=== PATIENT | female | born 1940 | race Caucasian/White ===

== ENCOUNTER 2016-12-16 10:10 | Emergency (ER) | payer MEDICARE, BC ==
[2016-12-16] MEDS ORDERED: Sodium Chloride 0.9% 10 ML Syringe FLUSH PRN (11:24)
--- NOTE | 2016-12-16 11:32 | EDM.PDOC ---
ED HPI GENERAL MEDICAL PROBLEM - General Chief Complaint: General Stated Complaint: UNABLE TO WALK/EAT Time Seen by Provider: 12/16/16 11:06 Source of Information: Reports: Family (daughter), [facility], RN ( [facility] JAKE) History Limitations: Reports: No Limitations - History of Present Illness INITIAL COMMENTS - FREE TEXT/NARRATIVE: 76-year-old female presents for evaluation and treatment of injuries from a fall. Reportedly the patient has fallen 3 times in the last 3 weeks. She just recently moved to [facility], a memory care facility. The patient has believed body dementia and is unable to provide any history. History is mostly obtained from the patient's daughter, Ruth and a nurse from [facility]. Reportedly she's had 3 falls in the last 3 weeks. The first fall was unwitnessed. She was found on the floor was unable to get up at that time. The second fall was witnessed. She reportedly slid out of a chair. The third fall occurred 3 days ago. She was walking with a staff member when she became weak and slid down against a door frame. She was able to walk a little bit that day but over the last 3 days she has no longer been able to ambulate which she has been able to do so prior to this. Nursing staff also reports associated symptoms of a decreased appetite. She is not in any obvious pain but says "how "with certain range of motion and attempting to ambulate. No fevers, vomiting or diarrhea. She is on 81 mg aspirin daily. - Related Data Allergies Allergy/AdvReac Type Severity Reaction Status Date / Time acetaminophen Allergy Hallucinati Verified 12/16/16 10:27 [From Darvocet-N] ons etodolac [From Lodine] Allergy Other Verified 12/16/16 10:27 promethazine HCl Allergy Hallucinati Verified 12/16/16 10:27 [From Phenergan] ons propoxyphene napsylate Allergy Hallucinati Verified 12/16/16 10:27 [From Darvocet-N] ons sulfamethoxazole Allergy Other Verified 12/16/16 10:27 [From Bactrim] trimethoprim [From Bactrim] Allergy Other Verified 12/16/16 10:27 zolpidem [From Ambien] Allergy Other Verified 12/16/16 10:27 SMZ-TMP DS Tabs Allergy Rash Uncoded 04/05/16 08:20 [employer] Home Meds: Home Meds Aspirin [Ecotrin] 81 mg PO BEDTIME 01/28/15 [History] Captopril 50 mg PO BID 01/28/15 [History] Latanoprost [Xalatan 0.005% Ophth Soln] 1 drop EYEBOTH BEDTIME 01/28/15 [History ] Metoprolol Tartrate [Lopressor] 50 mg PO BID 01/28/15 [History] Simvastatin [Zocor] 40 mg PO BEDTIME 01/28/15 [History] Cholecalciferol (Vitamin D3) [Vitamin D] 2,000 unit PO DAILY 10/11/16 [History] Carbidopa/Levodopa [Sinemet 10-100 mg] 1 tab PO TID 12/16/16 [History] Multivit-Min/FA/Lycopene/Lut [Centrum Silver Tablet] 1 tab PO DAILY 12/16/16 [ History] traMADol HCl [Tramadol HCl] 1 tab PO QID PRN 12/16/16 [History] Past Medical History HEENT History: Reports: Cataract, Glaucoma Cardiovascular History: Reports: Cardiomyopathy, High Cholesterol, Hypertension Other Cardiovascular History: REcent stress test, echocardiogram and good results from [facility]/Dr. Mike Em stated Spouse Respiratory History: Reports: Other (See Below) Gastrointestinal History: Reports: Diverticulosis Other Gastrointestinal History: constipation occasionally Genitourinary History: Reports: Urinary Incontinence, UTI, Recurrent EARLY CHILDHOOD SERVICES COORDINATOR History: Reports: Musculoskeletal History: Reports: None Neurological History: Reports: Other (See Below) Other Neuro History: No migraines for years Psychiatric History: Reports: Dementia, Depression Endocrine/Metabolic History: Reports: Osteopenia Hematologic History: Reports: None Immunologic History: Reports: None Oncologic (Cancer) History: Reports: None Dermatologic History: Reports: None - Infectious Disease History Infectious Disease History: Reports: Chicken Pox, Mumps - Past Surgical History Head Surgeries/Procedures: Reports: None Cardiovascular Surgical History: Reports: Other (See Below) Social & Family History - Family History Family Medical History: Noncontributory HEENT: Reports: None Cardiac: Reports: Heart Failure, Hypertension Respiratory: Reports: COPD Musculoskeletal: Reports: Arthritis - Tobacco Use Smoking Status *Q: Unknown Ever Smoked Used Tobacco, but Quit: Yes Month Tobacco Last Used: Cannot recall Second Hand Smoke Exposure: No - Caffeine Use Caffeine Use: Reports: None - Recreational Drug Use Recreational Drug Use: No Drug Use in Last 12 Months: No ED ROS GENERAL - Review of Systems Review Of Systems: See Below Constitutional: Denies: Fever GI/Abdominal: Denies: Diarrhea, Vomiting Neurological: Reports: Difficulty Walking ED EXAM, GENERAL - Physical Exam Exam: See Below Exam Limited By: No Limitations General Appearance: Alert, No Apparent Distress, Thin Eye Exam: Bilateral Eye: Normal Inspection, PERRL Ears: Normal External Exam, Normal Canal, Hearing Grossly Normal, Normal TMs Nose: Normal Inspection Throat/Mouth: Normal Inspection, Normal Lips, Normal Oropharynx, Normal Voice, No Airway Compromise, Other (dry mucus membranes) Head: Other (approximately golf ball sized lump to the left superior parietal region) Neck: Normal Inspection, Supple, Non-Tender, Full Range of Motion Respiratory/Chest: No Respiratory Distress, Lungs Clear, Normal Breath Sounds Cardiovascular: Normal Peripheral Pulses, Regular Rate, Rhythm, No Murmur Peripheral Pulses: 2+: Radial (L), Radial (R), Posterior Tibial (L), Posterior Tibial (R), Dorsalis Pedis (L), Dorsalis Pedis (R) GI/Abdominal: Normal Bowel Sounds, Non-Tender, Rigid Back Exam: Normal Inspection Extremities: Other (Right leg is shortened compared to the left leg and externally rotated; winces with internal and externally rotation of the right leg, able to internallyRotate left leg.) Neurological: Alert Psychiatric: Normal Affect, Normal Mood (pleasent ) Skin Exam: Warm, Dry, Normal Color, Other (Approximately 2 cm skin tear to the left posterior distal forearm, bruising to the right posterior arm.) EKG INTERPRETATION EKG Date: 12/16/16 Time: 13:05 Rhythm: A-Fib [place]: Normal P-Wave: Present QRS: Normal ST-T: Normal QT: Normal EKG Interpretation Comments: initial ekg at 13:06 contains artifact difficult to interpret a.fib vs. sinus tachy at 110 bpm repeat ekg at 15:00 shows a.fib at 102 bpm. EKGs reviewed by myself and Dr. Ana Elder. Course - Vital Signs Last Recorded V/S: Last Vital Signs Temp 36.4 C 12/16/16 10:20 Pulse 91 12/16/16 10:20 Resp 16 12/16/16 10:20 BP 129/112 H 12/16/16 10:20 Pulse Ox 95 12/16/16 10:20 - Orders/Labs/Meds Orders: Active Orders 24 hr Category Date Time Status EKG 12 Lead [EKG Documentation Completion] [] STAT Care 12/16/16 12:26 Active EKG 12 Lead [EKG Documentation Completion] [RC] STAT Care 12/16/16 14:53 Active Peripheral IV Care [RC] . DIRECTED Care 12/16/16 11:25 Active Chest 1V Frontal [CR] Stat Exams 12/16/16 12:26 Taken CULTURE URINE [RM] Stat Lab 12/16/16 12:50 Ordered Sodium Chloride 0.9% [Saline Flush] Med 12/16/16 11:24 Active 10 ml FLUSH ASDIRECTED PRN cefTRIAXone [Rocephin] 1 gm Med 12/16/16 14:53 Active Sodium Chloride 0.9% [Normal Saline] 100 ml IV ONETIME Peripheral IV Insertion Adult [OM.PC] Routine Oth 12/16/16 11:24 Ordered Medication Orders Ceftriaxone Sodium 1 gm/ (Sodium Chloride) 100 mls @ 200 mls/hr IV ONETIME ONE Stop: 12/16/16 15:22 Last Admin: 12/16/16 15:09 Dose: 200 mls/hr Sodium Chloride (Saline Flush) 10 ml FLUSH ASDIRECTED PRN PRN Reason: Keep Vein Open Last Admin: 12/16/16 13:01 Dose: 10 ml Labs: Laboratory Tests 12/16/16 12/16/16 12/16/16 Range/Units 12:40 12:40 12:40 WBC 15.10 H (3.98-10.04) K/mm3 RBC 4.40 (3.98-5.22) M/mm3 Hgb 13.5 (11.2-15.7) gm/L Hct 41.8 (34.1-44.9) % MCV 95.0 H (79.4-94.8) fl MCH 30.7 (25.6-32.2) pg MCHC 32.3 (32.2-35.5) g/dl RDW Std Deviation 46.9 H (36.4-46.3) fL Plt Count 258 (182-369) K/mm3 MPV 10.9 (9.4-12.3) fl Neutrophils % (Manual) 76 H (40-60) % Band Neutrophils % 0 (0-10) % Lymphocytes % (Manual) 18 L (20-40) % Atypical Lymphs % 0 % Monocytes % (Manual) 4 (2-10) % Eosinophils % (Manual) 2 (0.7-5.8) % Basophils % (Manual) 0 L (0.1-1.2) Platelet Estimate Adequate RBC Morph Comment Normal PT 12.5 (8.0-13.0) SECONDS INR 1.14 APTT 25 (22-36) SECONDS Sodium 141 (136-145) mEq/L Potassium 4.4 (3.5-5.1) mEq/L Chloride 105 (98-107) mEq/L Carbon Dioxide 30 (21-32) mEq/L Anion Gap 10.4 (5-15) BUN 12 (7-18) mg/dL Creatinine 0.7 (0.55-1.02) mg/dL Est Cr Clr Drug Dosing 53.12 mL/min Estimated GFR (MDRD) > 60 (>60) mL/min BUN/Creatinine Ratio 17.1 (14-18) Glucose 112 (83-115) mg/dL Calcium 8.6 (8.5-10.1) mg/dL Total Bilirubin 0.7 (0.2-1.0) mg/dL AST 35 (15-37) U/L ALT 20 (14-59) U/L Alkaline Phosphatase 103 (46-116) U/L B-Natriuretic Peptide (0-100) pg/mL Total Protein 6.5 (6.4-8.2) g/dl Albumin 2.5 L (3.4-5.0) g/dl Globulin 4.0 gm/dL Albumin/Globulin Ratio 0.6 L (1-2) Urine Color (Yellow) Urine Appearance (Clear) Urine pH (5.0-8.0) Ur Specific [place] (1.005-1.030) Urine Protein (Negative) Urine Glucose (UA) (Negative) Urine Ketones (Negative) Urine Occult Blood (Negative) Urine Nitrite (Negative) Urine Bilirubin (Negative) Urine Urobilinogen (0.2-1.0) Ur Leukocyte Esterase (Negative) Urine RBC (0-5) /hpf Urine WBC (0-5) /hpf Urine WBC Clumps (NOT SEEN) /hpf Ur Epithelial Cells (0-5) /hpf Urine Bacteria (FEW) /hpf Urine Mucus (FEW) /hpf Urine Yeast (NOT SEEN) 12/16/16 12/16/16 Range/Units 12:40 12:54 WBC (3.98-10.04) K/mm3 RBC (3.98-5.22) M/mm3 Hgb (11.2-15.7) gm/L Hct (34.1-44.9) % MCV (79.4-94.8) fl MCH (25.6-32.2) pg MCHC (32.2-35.5) g/dl RDW Std Deviation (36.4-46.3) fL Plt Count (182-369) K/mm3 MPV (9.4-12.3) fl Neutrophils % (Manual) (40-60) % Band Neutrophils % (0-10) % Lymphocytes % (Manual) (20-40) % Atypical Lymphs % % Monocytes % (Manual) (2-10) % Eosinophils % (Manual) (0.7-5.8) % Basophils % (Manual) (0.1-1.2) Platelet Estimate RBC Morph Comment PT (8.0-13.0) SECONDS INR APTT (22-36) SECONDS Sodium (136-145) mEq/L Potassium (3.5-5.1) mEq/L Chloride (98-107) mEq/L Carbon Dioxide (21-32) mEq/L Anion Gap (5-15) BUN (7-18) mg/dL Creatinine (0.55-1.02) mg/dL Est Cr Clr Drug Dosing mL/min Estimated GFR (MDRD) (>60) mL/min BUN/Creatinine Ratio (14-18) Glucose (83-115) mg/dL Calcium (8.5-10.1) mg/dL Total Bilirubin (0.2-1.0) mg/dL AST (15-37) U/L ALT (14-59) U/L Alkaline Phosphatase (46-116) U/L B-Natriuretic Peptide 449 H (0-100) pg/mL Total Protein (6.4-8.2) g/dl Albumin (3.4-5.0) g/dl Globulin gm/dL Albumin/Globulin Ratio (1-2) Urine Color Yellow (Yellow) Urine Appearance Cloudy H (Clear) Urine pH 7.0 (5.0-8.0) Ur Specific [place] 1.020 (1.005-1.030) Urine Protein 1+ H (Negative) Urine Glucose (UA) Negative (Negative) Urine Ketones 1+ H (Negative) Urine Occult Blood Negative (Negative) Urine Nitrite Negative (Negative) Urine Bilirubin 1+ H (Negative) Urine Urobilinogen 1.0 (0.2-1.0) Ur Leukocyte Esterase 1+ H (Negative) Urine RBC Not seen (0-5) /hpf Urine WBC 5-10 H (0-5) /hpf Urine WBC Clumps Not seen (NOT SEEN) /hpf Ur Epithelial Cells Not seen (0-5) /hpf Urine Bacteria Many H (FEW) /hpf Urine Mucus Not seen (FEW) /hpf Urine Yeast Not seen (NOT SEEN) Meds: Medications Generic Name Dose Route Start Last Admin Trade Name Freq PRN Reason Stop Dose Admin Ceftriaxone Sodium 1 gm/ 100 mls @ 200 mls/hr 12/16/16 14:53 12/16/16 15:09 Sodium Chloride IV 12/16/16 15:22 200 mls/hr ONETIME ONE Administration Sodium Chloride 10 ml 12/16/16 11:24 12/16/16 13:01 Saline Flush FLUSH 10 ml ASDIRECTED PRN Administration Keep Vein Open - Radiology Interpretation Free Text/Narrative:: CT of the head without contrast impression per Dr. Zuluaga: xray of the right hip with pelvis impression per Dr. Zuluaga: 1. Mildly displaced subcapital fracture within the right hip. 2. mild degenerative change is noted within the left hip and within the sacroiliac joints. xray of the lumbar spine impression per Dr. Zuluaga: 1. Vertebral plana at T12. Uncertain to age of this finding without previous study. 2. Mild scolosis and degenerative change as described above. - Re-Assessments/Exams Free Text/Narrative Re-Assessment/Exam: 12/16/16 12:51 I reviewed the x-ray results with the patient and her family. She does have a mildly displaced subcapital fracture within the right hip. She requires orthopedics. Unfortunately, we do not have orthopedics on-call. Family requested we she go to [place]. As this is where is an family is. I have spoken with [facility] agricultural economics teacher. Concerns are [place] is a farther distance then [place] and both [place] and [place] are critical access hospitals. At this point I'm unsure what will be covered by insurance if the patient were to go to [place]. We are currently working with the [place] facility, social work and case management to establish a plan for the patient. 12/16/16 13:39 I've spoken with , orthopedics at [place]. She agrees to accept the patient. Advises that I will speak to the hospitalist if we are able to transfer. She was unsure the patient's insurance would cover this lateral transfer. We are still currently working with case management social work to see if we can get the patient transferred to [place]. Labs return. White blood cell count 15.10 with no bands, hemoglobin 13.5 and platelets 258. BNP elevated at 449. Sodium 141, potassium 4.4 and chloride 105. Anion gap is 10.4. Glucose 112. 12/16/16 15:20 The patient's other daughter, Taylor, is now present in the ER. They asked that we keep her here at the hospital in [place] and then she could see orthopedics on Monday. I discussed this with Dr. Smith. Given that we do not have orthopedics this weekend, we are unable to admit her for orthopedic problem. Options are to go to [place], go to [place] or sign AMA paperwork return back to the senior care. The daughters did not feel that [facility] would accept this patient again. We ultimately decided that the patient go to [place]. Dr. Shelley, hospitalist, accepting. Previously talked Dr. Reeves, orthopedics at [place]. She will go by ambulance. UA has 1+ protein, 1+ ketones, 1+ bilirubin, 1+ leukocytes and many bacteria seen on microscopy. Negative nitrates. I've given the patient 1 g IV Rocephin for urinary tract infection. Urinalysis been sent for culture. 12/16/16 15:26 Images have been pushed to [facility] and [place]. Departure - Departure Time of Disposition: 15:33 Disposition: DC/Tfer to Acute Hospital 02 Condition: Fair Clinical Impression: Hip fracture, right, Urinary tract infection - Discharge Information Forms: ED Department Discharge Additional Instructions: Patient to be transferred by ground ambulance to [facility] in [place] for a right hip fracture and urinary tract infection. Dr. Karsten veliz. - My Orders Last 24 Hours: My Active Orders 12/16/16 11:24 Sodium Chloride 0.9% [Saline Flush] 10 ml FLUSH ASDIRECTED PRN Peripheral IV Insertion Adult [OM.PC] Routine 12/16/16 11:25 Peripheral IV Care [RC] . DIRECTED 12/16/16 12:26 EKG 12 Lead [EKG Documentation Completion] [RC] STAT Chest 1V Frontal [CR] Stat 12/16/16 12:50 CULTURE URINE [RM] Stat 12/16/16 14:53 EKG 12 Lead [EKG Documentation Completion] [RC] STAT cefTRIAXone [Rocephin] 1 gm Sodium Chloride 0.9% [Normal Saline] 100 ml IV ONETIME - Assessment/Plan Last 24 Hours: My Active Orders 12/16/16 11:24 Sodium Chloride 0.9% [Saline Flush] 10 ml FLUSH ASDIRECTED PRN Peripheral IV Insertion Adult [OM.PC] Routine 12/16/16 11:25 Peripheral IV Care [RC] . DIRECTED 12/16/16 12:26 EKG 12 Lead [EKG Documentation Completion] [RC] STAT Chest 1V Frontal [CR] Stat 12/16/16 12:50 CULTURE URINE [RM] Stat 12/16/16 14:53 EKG 12 Lead [EKG Documentation Completion] [RC] STAT cefTRIAXone [Rocephin] 1 gm Sodium Chloride 0.9% [Normal Saline] 100 ml IV ONETIME
--- NOTE | 2016-12-16 12:14 | CT ---
Head CT Technique: Multiple axial sections through the brain were obtained. Intravenous contrast was not utilized. Comparison: No previous intracranial imaging. 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 Ventricles along with basal cisterns and sulci over convexities are moderately prominent with atrophy including the cerebellum. Mild diminished density is noted within the periventricular white matter compatible with small vessel ischemic demyelination change. No evidence of intracranial hemorrhage. No midline shift or mass effect is seen. Atherosclerotic calcification is noted within the carotid siphon. Bone window settings were reviewed which shows no discrete calvarial abnormality. Impression: 1. Senescent change as described above. No acute intracranial abnormality is identified on noncontrast head CT study. Diagnostic code #2
--- NOTE | 2016-12-16 12:40 | CR ---
Lumbar spine: AP and lateral views of the lumbar spine were obtained. Mild disc space narrowing noted at L5-S1. Severe compression deformity with vertebral plana is noted at T12. Other vertebral body heights are maintained. Mild scattered endplate osteophytes are seen. Mild disc space narrowing ia noted at L2-L3. Scoliosis is present. Impression: 1. Vertebral plana at T12. Uncertain to age of this finding without previous study. 2. Mild scoliosis and degenerative change as described above. Diagnostic code #3
--- NOTE | 2016-12-16 12:40 | CR ---
Pelvis and right hip: AP view of the pelvis was obtained as well as AP and lateral views of the right hip. Mildly displaced subcapital fracture is seen within the right hip. Mild joint space narrowing is seen within the right hip. Joint space within the left hip is preserved. Mild degenerative cysts are noted within the left femoral head. Sacroiliac joints show mild degenerative change. Bony structures are osteopenic. No additional fracture is seen. Impression: 1. Mildly displaced subcapital fracture within the right hip. 2. Mild degenerative change is noted within the left hip and within the sacroiliac joints. Diagnostic code #3
[2016-12-16] MEDS ORDERED: cefTRIAXone 1 GM in Sodium Chloride 0.9% 100 ML IV ONE (14:53)
[2016-12-16 16:08] VITALS: BP 102/83
--- NOTE | 2016-12-16 16:45 | CR ---
Chest: Portable view of the chest was obtained. Comparison: No previous chest x-ray. Heart is enlarged. No acute appearing infiltrates are seen. Scoliosis is present within the spine with osteopenia. Impression: 1. Cardiomegaly and other incidental findings. Nothing acute is identified on portable chest x-ray. Diagnostic code #2
== END 2016-12-16 15:50 ==
LOC: JD.ED 10:10
DX: S72.011A Unspecified intracapsular fracture of right femur, initial encounter for closed fracture (principal); S51.812A Laceration without foreign body of left forearm, initial encounter; S40.021A Contusion of right upper arm, initial encounter; N39.0 Urinary tract infection, site not specified; E78.00 Pure hypercholesterolemia, unspecified; F32.9 Major depressive disorder, single episode, unspecified; I10 Essential (primary) hypertension; Z87.440 Personal history of urinary (tract) infections; Z88.6 Allergy status to analgesic agent; Z88.8 Allergy status to other drugs, medicaments and biological substances; Z79.82 Long term (current) use of aspirin; Z79.899 Other long term (current) drug therapy; W19.XXXA Unspecified fall, initial encounter; R29.6 Repeated falls
CPT/HCPCS: 36415; 51702; 70450; 71010; 72100; 73502; 80053; 81001; 83880; 85025; 85610; 85730; 87086; 87088; 87184; 93005; 96365; 99285; J0696; J7030; J7050; 99284